=== PATIENT | female | born 1970 | race Caucasian/White ===

== ENCOUNTER 2018-01-22 08:10 | Day surgery (SDC) | payer OTHER ==
[2018-01-22] MEDS ORDERED: Bupivacaine HCl 0.5%/Epinephrine 1:200,000/PF 30 ml Vial ONE (08:41)
[2018-01-22] MEDS ORDERED: Famotidine/PF 20 mg/2ml Vial ONE (08:43)
[2018-01-22] MEDS ORDERED: Gabapentin 300 MG CAP ONE (08:43)
[2018-01-22] MEDS ORDERED: CEFAZOLIN/Water 2 GM/20 ML SYRINGE ONE (08:44)
[2018-01-22] MEDS ORDERED: CeleCOXIB 100 MG CAP ONE ×2 (08:44→09:11)
[2018-01-22] MEDS ORDERED: Scopolamine 1.5 mg/72 hour Patch ONE (09:27)
[2018-01-22] MEDS ORDERED: Fentanyl 100 MCG/2 ML VIAL ONE ×3 (09:27→13:37)
[2018-01-22] MEDS ORDERED: SUGAMMADEX SODIUM 500 MG/5 ML VIAL ONE (11:49)
[2018-01-22] MEDS ORDERED: Promethazine HCl 25 MG/ML VIAL IM PRN (12:37)
[2018-01-22] MEDS ORDERED: Ondansetron HCl/PF 4 MG/2 ML Vial IVP PRN ×2 (12:37→14:21)
[2018-01-22] MEDS ORDERED: Promethazine HCl 25 MG/ML VIAL SLOW IVP PRN (12:37)
--- NOTE | 2018-01-22 12:38 | PDOC.OP ---
Operative Note - Operative Note Operative Note: Preop DX: fibroid uterus, menorrhagia Post oo Dx: fibroid uterus and menorrhagia [facility] Procedure: RATLH bilateral salpingectomy with extracorp morcellation Findings: enlarged fibroid uterus, obesity Complications: none E EBL: 100ml To PACU then to [facility] floor for recovery
[2018-01-22] MEDS ORDERED: Dexamethasone 20 MG/5 ML VIAL ONE (14:03)
[2018-01-22] MEDS ORDERED: PROPOFOL 200 MG/20 ML VIAL ONE (14:03)
[2018-01-22] MEDS ORDERED: Ketorolac Tromethamine 30 MG/ML VIAL ONE (14:03)
[2018-01-22] MEDS ORDERED: Lidocaine 1% PF 5 ML VIAL ONE (14:03)
[2018-01-22] MEDS ORDERED: Ondansetron HCl/PF 4 MG/2 ML Vial ONE (14:03)
[2018-01-22] MEDS ORDERED: Bisacodyl 10 MG SUPP PR PRN (14:21)
[2018-01-22] MEDS ORDERED: Simethicone Chewable 80 MG TAB PO PRN (14:21)
[2018-01-22] MEDS ORDERED: diphenhydrAMINE 25 MG CAP PO PRN (14:21)
[2018-01-22] MEDS ORDERED: Meperidine HCl/PF 25 MG/ML VIAL SLOW IVP PRN (14:21)
[2018-01-22] MEDS ORDERED: Acetaminophen/Codeine 30-300mg Tablet PO PRN ×2 (14:21)
[2018-01-22] MEDS: Sodium Chloride 0.9% 1,000 ML IV SCH ×2 (15:17→21:31)
[2018-01-22 15:53] VITALS: BMI 44.4
[2018-01-22] MEDS: Ketorolac Tromethamine 30 MG/ML VIAL IVP SCH (18:15)
[2018-01-22] MEDS ORDERED: Vitami E (Dl,Tocopheryl Acet) 400 UNITS CAP PO SCH (21:00)
[2018-01-22] MEDS ORDERED: Ubidecarenone 50 MG CAP PO SCH (21:00)
[2018-01-22] MEDS: Ferrous Sulfate 325 MG TAB PO SCH (21:31)
--- NOTE | 2018-01-23 00:23 | OP ---
DATE OF PROCEDURE: 01/22/2018 PREOPERATIVE DIAGNOSES: Menorrhagia, fibroid uterus. POSTOPERATIVE DIAGNOSES: Menorrhagia, fibroid uterus. PROCEDURES PERFORMED: Total laparoscopic hysterectomy with bilateral salpingectomy robotic-assisted with extracorporeal uterine morcellation in self- contained bag. SURGEON: Scott Vasquez D.O. MENTAL HE[employer]IDES TEACHER: Ana Richards M.D. COMPLICATIONS: None. ESTIMATED BLOOD LOSS: 100 mL URINE OUTPUT: Approximately 150 mL at the start of the case. LAPAROSCOPIC FINDINGS: Enlarged fibroid uterus, normal-appearing fallopian tubes and normal-appearing ovaries bilaterally. No intraabdominal adhesive disease. PROCEDURE DETAILS: The patient was taken back to the OR with IV fluids running. Once she was in the OR, she was placed in dorsal supine position and general anesthesia was obtained. Once the patient was asleep, she was placed in low dorsal lithotomy position. The abdomen and vagina were prepped and draped in normal fashion for gynecologic laparoscopy. The surgeons were scrubbed in. Beginning vaginally, the bladder was drained using a Wilson catheter that was later attached to a Vanessa syringe for bladder manipulation if needed during the case. An operative speculum was placed in the vagina and the cervix was visualized. A single-tooth tenaculum was used to grasp the anterior lip of the cervix which was then sounded to approximately 8 cm. The cervix was then serially dilated to allow for placement of a KIANNA Madison manipulator. The KIANNA Madison manipulator was then assembled using a manipulator tip in 3.5 cm colpotomizer cup, it was then placed into the uterus and vagina in normal fashion with the intrauterine and vaginal occluder balloons inflated. The surgeon's gloves were then changed and attention was turned to the laparoscopic portion of the case. Beginning at the supraumbilical fold, local anesthesia was placed underneath the skin. A 12 mm skin incision was made with the scalpel and a Veress needle was placed through the skin incision into the peritoneal cavity. The peritoneum was then inflated to approximately 13 mmHg. After the abdomen was insufflated, the Veress needle was removed. A 12 mm trocar was placed through the incision followed by the laparoscope. The laparoscope was placed through this port with the above findings noted. The patient was then placed in Trendelenburg position. Under direct visualization and in similar fashion, the right and left lower quadrant 8 mm ports and the right upper quadrant 11 mm port were placed without difficulty. The uterus was manipulated and the uterus was noted to be wider than anticipated so the 12mm incision was extended at the fascia to allow placement of a gel point. A specimen bag was placed through the gel point for tissue extraction at the end of the case. The robotic console was then docked at the patient's bedside and the trocars were attached to the robotic arms. The robotic arms were then placed through the port under direct visualization. These instruments included monopolar scissors and a bipolar fenestrated grasper. Beginning on the patient' s left side, the left fallopian tube was identified, grasped at the fimbriated end and elevated away from the pelvic sidewall. The left fallopian tube was transected using monopolar and bipolar cautery and removed from the surgical field to be sent with the other pathologic specimen. The left utero-ovarian ligament was cauterized and incised, allowing the left ovary to fall away to the pelvic sidewall. The left round ligament was then identified, cauterized, and divided into anterior and posterior leaves. The anterior and posterior leaves were then dissected down towards the level of the uterine artery, which was then skeletonized. The anterior leaf was dissected across the anterior aspect of the cervix where bladder flap would later be completed. The blood supply on the patient's left side was cauterized at the level of the uterine artery and transected. Next, attention was turned to the contralateral side. In similar fashion, the right fallopian tube was identified, grasped, elevated and transected. It was removed from the surgical field and sent with the pathologic specimen. The right utero-ovarian ligament was cauterized and divided. There was some adhesive disease noted between the ovary and the posterior aspect of the uterus and this was dissected with fine dissection technique and with hemostasis and nondenominational of anatomy. After the right ovary , the right utero-ovarian ligament was transected. The right round ligament was identified, cauterized, and divided into anterior and posterior leaves, was dissected down towards the level of the uterine artery. The uterine artery and lateral vessels were cauterized and transected. The anterior leaf of the broad ligament was taken down anteriorly across the level of the cervix. The bladder was back filled and noted to be well away from the planned colpotomy site. The bladder flap was further dissected away from the planned colpotomy site. After this was completed, attention was turned posteriorly where the colpotomy began. The colpotomy began posteriorly and was completed circumferentially. After the colpotomy was completed, the uterine specimen was left in situ. A specimen bag had previously been placed through the extended supraumbilical port. The surgical pedicles and vaginal cuff were copiously irrigated and any small areas of bleeding were controlled with cauterization. The vaginal cuff was then closed with PDS suture in 2 layers. After the vaginal cuff was closed and the surgical pedicles were inspected, the pressure was dropped to 4 mmHg. No areas of bleeding were noted. The uterine specimen was then placed into the specimen bag. The tie on the specimen bag was then brought through the 12-mm GelPOINT port site. All ports were then removed from the abdomen. All instruments were removed and the counts were correct. After the ports were removed. The uterine specimen was morcellated through the self-contained back at the supraumbilical incision using a coring technique. After the specimen was completely morcellated, the bag was removed as well as the Paul O retractor and GelPOINT from the supraumbilical incision. The fascia was then closed with Vicryl suture at the level of the supraumbilical incision. All 4 ports skin incisions were then closed with Monocryl suture and dressed with Dermabond dressing. The vagina was inspected at the end of the case and no areas of bleeding were noted. The patient was then cleaned, dried, taken out of lithotomy position, extubated, and transferred to the recovery room in good condition. CRUZ
[2018-01-23] MEDS: Ketorolac Tromethamine 30 MG/ML VIAL IVP SCH ×2 (00:45→05:48)
[2018-01-23 05:20] LABS: Hemoglobin 10.7 g/dL (12.0-16.0); Mean Corpuscular HGB CONC 33.3 g/dL (32.0-36.0); Mean Corpuscular Hemoglobin 27.1 pg (27.0-31.0); Mean Corpuscular Volume 81.4 fL (78.0-98.0); Mean Platelet Volume 10.7 fL (7.4-10.4); Platelet Count 177 thou/uL (130-400); RBC Distribution Width 16.1 % (11.5-14.5); Red Blood Cell (RBC) Count 3.93 mill/uL (4.20-5.40); White Blood Cell (WBC) Count 11.1 thou/uL (4.8-10.8)
[2018-01-23] MEDS: Sodium Chloride 0.9% 1,000 ML IV SCH (05:41)
[2018-01-23 08:38] VITALS: BP 119/57; TEMP 98.1
--- NOTE | 2018-01-23 08:45 | PDOC.EVN ---
Event Note - Event Note Event Note: POD#1 S: doing well, min pain, no bleeding, urinating well, tolerating regular diet O: Vital Signs (12 hours) Temp Pulse Resp BP BP Pulse Ox 01/23/18 07:40 98.1 F 64 16 119/57 L 94 L 18 05:40 98.3 F 72 16 114/55 L 95 01/23/18 00:40 98.0 F 70 16 110/56 L 96 Weight Weight 284 lb Gen: NAD Lungs: nonlabored breathing Abd: nondistended, incisions CDI Ext: no edema or cords A?P:POD #1 sp RATLH/BS no concerns, plan for discharge today.
[2018-01-23] MEDS ORDERED: Vitamin A 10,000 UNITS CAP PO SCH (09:00)
[2018-01-23] MEDS: Ferrous Sulfate 325 MG TAB PO SCH (09:26)
[2018-01-27] MEDS ORDERED: Ibuprofen 800 MG TAB PO SCH (14:00)
== END 2018-01-23 10:48 | disposition home or self-care (01) ==
LOC: SDC 08:10 → EDSTATUS 11:30 → 3SE 14:15 → UNDOADMIN 14:15 → 3SE 14:15 → UNDODISIN 01-23 10:48 → SDC 01-23 10:48
PROVIDERS: ATTEND Obstetrics & Gynecology
PROC: 0UT24ZZ Resection of Bilateral Ovaries, Percutaneous Endoscopic Approach (ICD-10-PCS; principal; 2018-01-22)
PROC: 0UT94ZZ Resection of Uterus, Percutaneous Endoscopic Approach (ICD-10-PCS; principal; 2018-01-22)
DX: D25.9 Leiomyoma of uterus, unspecified (principal); D64.9 Anemia, unspecified; N83.8 Other noninflammatory disorders of ovary, fallopian tube and broad ligament; Z91.041 Radiographic dye allergy status
CPT/HCPCS: 36415; 84703; 85027; 86850; 86900; 86901; 88307; 96374; 96375; 96376; J0131; J0670; J1100; J1885; J2001; J2270; J2405; J2704; J3010; S0028

== ENCOUNTER 2021-09-30 09:36 | Outpatient (CLI) | payer BC | END 2021-09-30 09:37 | disposition home or self-care (01) | LOC: BICRAD 09:36 | PROVIDERS: ATTEND Family Medicine | DX: M25.551 Pain in right hip (principal) ==